=== PATIENT | female | born 1955 | race Caucasian/White ===

== ENCOUNTER → 2019-07-11 | Outpatient (CLI) | payer BC ==
--- NOTE | 2019-07-17 10:47 | MM ---
Reason for exam: screening (asymptomatic). Last mammogram was performed 2 years and 8 months ago. History: Patient is postmenopausal. Family history of breast cancer in 3 cousins. Physical Findings: A clinical breast exam by your physician is recommended on an annual basis and results should be correlated with mammographic findings. MG Screening Mammo w CAD Bilateral CC and MLO view(s) were taken. Prior study comparison: October 27, 2016, mammogram, performed at [place]. October 22, 2013, mammogram, performed at [place]. There are scattered fibroglandular densities. There is chronic nodularity in the left breast. No significant changes when compared with prior studies. ASSESSMENT: Benign, BI-RAD 2 RECOMMENDATION: Routine screening mammogram of both breasts in 1 year.
== END | disposition home or self-care (01) ==
LOC: RADMAMWWP 10:06
PROVIDERS: ATTEND Family Medicine
DX: Z12.31 Encounter for screening mammogram for malignant neoplasm of breast (principal)
CPT/HCPCS: 77067

== ENCOUNTER → 2020-10-30 | Outpatient (CLI) | payer MEDICARE, BC ==
--- NOTE | 2020-11-04 10:21 | MM ---
Reason for exam: screening (asymptomatic). Last mammogram was performed 1 year and 4 months ago. History: Patient is postmenopausal. Family history of breast cancer in 3 cousins. Physical Findings: A clinical breast exam by your physician is recommended on an annual basis and results should be correlated with mammographic findings. MG 3D Screening Mammo W/Cad Bilateral CC and MLO view(s) were taken. Prior study comparison: July 11, 2019, bilateral MG screening mammo w CAD. October 27, 2016, mammogram, performed at [place]. There are scattered fibroglandular densities. No mammographic findings. Left axillary lymph nodes, two dense lymph nodes, patient had second covid vaccine left arm. Recommend left axillary ultrasound. ASSESSMENT: Incomplete: need additional imaging evaluation, BI-RAD 0 RECOMMENDATION: Ultrasound of the left breast. (axilla) [facility] will attempt to contact patient to return for ultrasound.
== END | disposition home or self-care (01) ==
LOC: RADMAMWWP 13:19
PROVIDERS: ATTEND Family Medicine
DX: Z12.31 Encounter for screening mammogram for malignant neoplasm of breast (principal); Z80.3 Family history of malignant neoplasm of breast; Z78.0 Asymptomatic menopausal state
CPT/HCPCS: 77063; 77067

== ENCOUNTER → 2020-11-19 | Outpatient (CLI) | payer MEDICARE, BC ==
--- NOTE | 2020-11-19 11:19 | USB ---
Reason for exam: additional evaluation requested from abnormal screening. History: Patient is postmenopausal. Family history of breast cancer in 3 cousins. Physical Findings: Nurse did not find any significant physical abnormalities on exam. US Breast Workup Limited LT Left limited breast ultrasound including focal area of concern, retroareolar and axilla demonstrates multiple lymph nodes visualized, largest 1.5 x 0.5 x 0.8cm. One lymph node cortex 3mm which is mildly thickened. Recommend CT chest for additional evaluation. These results were verbally communicated with the patient and result sheet given to the patient on 11/19/20. ASSESSMENT: Incomplete: need additional imaging evaluation, BI-RAD 0 RECOMMENDATION: Further imaging of the left breast. CT chest with contrast.
== END | disposition home or self-care (01) ==
LOC: RADUSWWP 09:25
PROVIDERS: ATTEND Family Medicine
DX: R92.8 Other abnormal and inconclusive findings on diagnostic imaging of breast (principal); Z80.3 Family history of malignant neoplasm of breast; Z78.0 Asymptomatic menopausal state

== ENCOUNTER → 2020-11-27 | Outpatient (CLI) | payer MEDICARE, BC ==
--- NOTE | 2020-11-27 13:10 | CT ---
EXAMINATION TYPE: CT chest wo/w con DATE OF EXAM: 11/27/2020 COMPARISON: None HISTORY: abn Mammogram, abnormal ultrasound 11/19/2020 CT DLP: 478.5 mGycm, Automated exposure control for dose reduction was used. CONTRAST: Performed injected with 100 mL of Isovue 300. TECHNIQUE: Axial images were obtained at 5 mm thick sections. Reconstructed images are reviewed on [employer] computer in the coronal plane. FINDINGS: Portion of the thyroid visualized is normal. No suspicious lung nodules or focal infiltrates are present. No enlarged mediastinal or hilar adenopathy is evident. Couple of small lymph nodes may be in the p retracheal space and aortopulmonic window. No superior mediastinal lymphadenopathy is evident. Small lymph nodes are within the left axillary region. Very minimal right axillary lymphadenopathy is prese nt. The ascending aorta diameter at the level of the main pulmonary artery is 3.1 cm. The main pulmonary artery diameter at the bifurcation is 2.[address] sections are obtained through the upper abdomen. 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 No carreon spicious adenopathy within the upper abdomen within the [id number] is evident. COMPARISON: Finding on the left axillary ultrasound not clearly correlated on the CT. Previous ultras ound findings could be related to reactive lymphadenopathy such as from Covid Vaccination. Recommend left axillary ultrasound in 3 months to document resolution. IMPRESSIONS: 1. Normal Chest CT. 2. Suspicious enlarged lymphadenopathy is not identified. Recommendations: 1. Follow-up left axillary ultrasound 3 months.
== END | disposition home or self-care (01) ==
LOC: RADCTMAIN 07:06
PROVIDERS: ATTEND Family Medicine
DX: R92.8 Other abnormal and inconclusive findings on diagnostic imaging of breast (principal)
CPT/HCPCS: 82565; 84520; 71270; 36415; Q9967

== ENCOUNTER → 2021-02-17 | Outpatient (CLI) | payer MEDICARE, BC ==
--- NOTE | 2021-02-17 15:26 | US ---
EXAMINATION TYPE: US axilla LT DATE OF EXAM: 02/17/2021 COMPARISON: US 2020 CLINICAL HISTORY: R59.0 Localized enlarged lymph nodes. Left axillary lymph nodes Left axilla: multiple lymph nodes seen with largest measuring 1.3 x 0.7 x 0.9cm IMPRESSION: Multiple lymph nodes as discussed above.
== END | disposition home or self-care (01) ==
LOC: RADUSWWP 14:52
PROVIDERS: ATTEND Family Medicine
DX: R59.0 Localized enlarged lymph nodes (principal)

== ENCOUNTER → 2021-11-15 | Outpatient (CLI) | payer MEDICARE ==
--- NOTE | 2021-11-16 20:07 | MM ---
Reason for Exam: Screening (asymptomatic). Last mammogram was performed 1 year(s) and 1 month(s) ago. Patient History: Menarche at age 12. First Full-Term at age 18. Hysterectomy at age 39. Postmenopausal. Paternal cousin had breast cancer, age 61. Paternal cousin had breast cancer, age 54. Risk Values: Alaina 5 year model risk: 1.2%. NCI Lifetime model risk: 4.4%. Prior Study Comparison: 10/27/2016 Screening Mammogram, New Site. 07/11/2019 Bilateral Screening Mammogram, [facility]. 10/30/2020 Bilateral Screening Mammogram, [facility]. Tissue Density: There are scattered fibroglandular densities. Findings: Analyzed By CAD. Chronic nodularity left upper-outer quadrant. Asymmetric densities medial right CC view and central left MLO view are unchanged. No significant change from prior exams. Overall Assessment: Benign, BI-RAD 2 Management: Screening Mammogram of both breasts in 1 year. A clinical breast exam by your physician is recommended on an annual basis and results should be correlated with mammographic findings. Also, the patient should continue monthly self breast exams. Electronically signed and approved by: Andreas Hernandez M.D. Radiologist
== END | disposition home or self-care (01) ==
LOC: RADMAMWWP 16:32
PROVIDERS: ATTEND Family Medicine
DX: Z12.31 Encounter for screening mammogram for malignant neoplasm of breast (principal); Z80.3 Family history of malignant neoplasm of breast
CPT/HCPCS: 77063; 77067

== ENCOUNTER → 2023-02-16 | Outpatient (CLI) | payer MEDICARE ==
--- NOTE | 2023-02-21 09:40 | MM ---
Reason for Exam: Screening (asymptomatic). Last mammogram was performed 1 year(s) and 3 month(s) ago. Patient History: Menarche at age 12. First Full-Term at age 18. Hysterectomy at age 39. Postmenopausal. Paternal cousin had breast cancer, age 61. Paternal cousin had breast cancer, age 54. Risk Values: Alaina 5 year model risk: 1.2%. NCI Lifetime model risk: 4.2%. Prior Study Comparison: 07/11/2019 Bilateral Screening Mammogram, [facility]. 10/30/2020 Bilateral Screening Mammogram, [facility]. 11/15/2021 Bilateral MG 3D screening mammo w/cad, [facility]. Tissue Density: The breast tissue is heterogeneously dense. This may lower the sensitivity of mammography. Findings: Analyzed By CAD. There is no suspicious group of microcalcifications or new suspicious mass in either breast. Overall Assessment: Benign, BI-RAD 2 Management: Screening Mammogram of both breasts in 1 year. . Patient should continue monthly self-breast exams. A clinical breast exam by your physician is recommended on an annual basis. This exam should not preclude additional follow-up of suspicious palpable abnormalities. Note on Alaina scores and lifetime risk: 1. A Alaina score greater than 3% is considered moderate risk. If this is the case, consider specialist referral to assess eligibility for a risk reducing agent. 2. If overall lifetime risk for the development of breast cancer is 20% or higher, the patient may qualify for future screening with alternating mammogram and breast MRI. Electronically signed and approved by: Jorge Meraz M.D. Radiologis
== END | disposition home or self-care (01) ==
LOC: RADMAMWWP 14:10
PROVIDERS: ATTEND Family Medicine
DX: Z12.31 Encounter for screening mammogram for malignant neoplasm of breast (principal); Z78.0 Asymptomatic menopausal state; Z80.3 Family history of malignant neoplasm of breast
CPT/HCPCS: 77063; 77067

== ENCOUNTER → 2023-02-23 | Outpatient (CLI) | payer MEDICARE ==
--- NOTE | 2023-02-23 12:14 | CTL ---
EXAMINATION TYPE: CT Low Dose Lung DATE OF EXAM ORDERED: 02/23/2023 COMPARISON: 11/27/2020 HISTORY: . Low Dose CT Lung Screening CT DLP: 85.[address] CTDI: 2.5 mGy IV CONTRAST USED: None. SCREENING VISIT: First visit COMPARISON: None. TECHNIQUE: Low dose computed tomography scan was performed through the chest at 1 millimeter thick se ctions and reconstructed images in the coronal plane at [address] DIAGNOSTIC QUALITY: Satisfactory FINDINGS: LUNG NODULES: No distinct pulmonary nodules identified. LUNGS: COPD: Severity: None Fibrosis: Severity:None Lymph nodes: None Other findings: Increased basilar markings may reflect atelectasis although developing pneumonitis is not excluded. Correlate clinically and consider progress studies. RIGHT PLEURAL SPACE: Effusion: None Calcification: None Thickening: None Pneumothorax: None LEFT PLEURAL SPACE: Effusion: None Calcification: None Thickening: None Pneumothorax: None HEART: Heart Size: Within normal limits Coronary calcification: None Pericardial effusion: None OTHER FINDINGS: Upper abdomen: No significant abnormality Bony thorax: Degenerative changes Supraclavicular region: No significant abnormalityOther: No significant abnormalityI IMPRESSION: 1.No distinct pulmonary nodules identified. 2.Increased basilar markings may reflect atelectasis although developing pneumonitis is not excluded. Correlate clinically and consider progress studies. FOLLOW UP CT CHEST RECOMMENDATION: Follow-up screening in one year CT LUNG RAD: LUNG RAD CATEGORY 1 negative
== END | disposition home or self-care (01) ==
LOC: RADCTMAIN 11:24
PROVIDERS: ATTEND Family Medicine
DX: Z12.2 Encounter for screening for malignant neoplasm of respiratory organs (principal); R91.8 Other nonspecific abnormal finding of lung field; F17.210 Nicotine dependence, cigarettes, uncomplicated
CPT/HCPCS: 71271

== ENCOUNTER → 2024-07-05 | Outpatient (CLI) | payer MEDICARE ==
--- NOTE | 2024-07-05 18:08 | MM ---
Reason for Exam: Screening (asymptomatic). Last mammogram was performed 1 year(s) and 4 month(s) ago. Patient History: Menarche at age 12. First Full-Term at age 18. Hysterectomy at age 39. Postmenopausal. Paternal cousin had breast cancer, age 61. Paternal cousin had breast cancer, age 54. Risk Values: Alaina 5 year model risk: 1.2%. NCI Lifetime model risk: 3.9%. Prior Study Comparison: 10/30/2020 Bilateral Screening Mammogram, [facility]. 11/15/2021 Bilateral MG 3D screening mammo w/cad, [facility]. 02/16/2023 Bilateral MG 3D screening mammo w/cad, [facility]. Tissue Density: There are scattered areas of fibroglandular density. Findings: Analyzed By CAD. Chronic nodularity on the left. There is no suspicious group of microcalcifications or new suspicious mass in either breast. Overall Assessment: Benign, BI-RAD 2 Management: Screening Mammogram of both breasts in 1 year. Patient should continue monthly self-breast exams. A clinical breast exam by your physician is recommended on an annual basis. This exam should not preclude additional follow-up of suspicious palpable abnormalities. Note on Alaina scores and lifetime risk: 1. A Alaina score greater than 3% is considered moderate risk. If this is the case, consider specialist referral to assess eligibility for a risk reducing agent. 2. If overall lifetime risk for the development of breast cancer is 20% or higher, the patient may qualify for future screening with alternating mammogram and breast MRI. [facility], , 07/05/2024 6:05 PM. Electronically signed and approved by: Andreas Hernandez M.D. Radiologist
== END | disposition home or self-care (01) ==
LOC: RADMAMWWP 13:51
PROVIDERS: ATTEND Family Medicine
DX: Z12.31 Encounter for screening mammogram for malignant neoplasm of breast (principal); R92.323 Mammographic fibroglandular density, bilateral breasts; Z78.0 Asymptomatic menopausal state; Z80.3 Family history of malignant neoplasm of breast
CPT/HCPCS: 77063; 77067